=== PATIENT | male | born 2000 | race Caucasian/White ===

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

== ENCOUNTER → 2022-10-18 | Outpatient (CLI) | payer BC, OTHER ==
--- NOTE | 2022-10-21 07:43 | CT ---
EXAMINATION TYPE: CT abdomen pelvis wo/w con CT DLP: 1898.10 mGycm, Automated exposure control for dose reduction was used. DATE OF EXAM: 10/18/2022 6:11 PM COMPARISON: None. CLINICAL INDICATION:Male, 21 years old with history of R63.4 abn weight loss; Abnormal weight loss ov er 100 lbs, IBS, pain TECHNIQUE: Axial CT of the abdomen and pelvis with and without IV contrast.. Sagittal and coronal re formats were created on a separate workstation. Contrast used:100 mL of Isovue 300 with IV Contrast, (none if empty) Oral contrast used: with Oral Contrast (none if empty) FINDINGS: LOWER CHEST: Right lower lobe 3 mm nodule series 3 image 4. ABDOMEN LIVER: Unremarkable GALLBLADDER AND BILE DUCTS: Unremarkable. PANCREAS: Unremarkable. SPLEEN: Unremarkable. ADRENAL GLANDS: Unremarkable. KIDNEYS AND URETERS: No evidence of hydronephrosis or renal calculus. The ureters are unremarkable. PELVIS BLADDER: Unremarkable REPRODUCTIVE: Unremarkable. ABDOMEN & PELVIS STOMACH AND BOWEL: No evidence of bowel obstruction. No abnormal bowel wall thickening. PERITONEUM/RETROPERITONEUM: No evidence of pneumoperitoneum or free fluid. VASCULATURE: No evidence of aortic aneurysm. MUSCULOSKELETAL: No acute osseous abnormalities. Mild disc degeneration changes are present throughou t the thoracolumbar spine. Sclerotic bone island in the right proximal femur, left posterior acetabul um LYMPH NODES: No gross evidence for lymphadenopathy. SOFT TISSUE/ABDOMINAL WALL: Unremarkable IMPRESSION: 1. No evidence for acute process involving the bowel. No bowel wall thickening or evidence for obstr uction. No mass identified. 2. 3 mm right lower lobe pulmonary nodule. Follow-up in 12 months is recommended to ensure stability .
== END | disposition home or self-care (01) ==
LOC: RADCTMAIN 15:36
PROVIDERS: ATTEND Internal Medicine Gastroenterology
DX: R91.1 Solitary pulmonary nodule (principal); R63.4 Abnormal weight loss
CPT/HCPCS: 74178; Q9967